=== PATIENT | female | born 1990 | race Caucasian/White ===

== ENCOUNTER 2023-11-25 20:04 | Outpatient (CLI) | payer OTHER ==
[~2023-11-25] VITALS: Ht 167.6 cm; Wt 119.7 kg
[~2023-11-25 20:04] MED LIST: ADULT LOW DOSE81 M1 PO; HYDRALAZINE HCL25 MG PO; LABETALOL HCL100 MG PO; NIFE60TA3 PO; NIFEDIPINE20 MG PO; OBSTETRIX ONE1 EAC1 PO
[2023-11-25] MEDS ORDERED: RINGERS SOLUTION,LACTATED 1,000 ML IV SCH (20:45)
[2023-11-25] MEDS ORDERED: LABETALOL HCL 100 MG TABLET PO SCH (21:00)
[2023-11-25 21:03] LABS: HEMATOCRIT 36.2 % (36.0-45.00); HEMOGLOBIN 12.1 g/dL (12.0-15.00); MEAN CELL VOLUME 80.6 fL (80.00-100.00); MEAN CORPUSCULAR HEMOGLOBIN 26.9 pg (27.00-32.0); MEAN CORPUSCULAR HGB CONC 33.3 g/dl (32.0-36.0); PLATELET COUNT 266 K/uL (150-450); RED BLOOD COUNT 4.49 M/uL (4.00-6.00); RED CELL DISTRIBUTION WIDTH 15.2 % (11.5-14.5); URINE APPEARANCE Cloudy; URINE BILIRRUBIN Negative (NEGATIVE); URINE BLOOD Negative; URINE COLOR Yellow; URINE GLUCOSE Negative (NEGATIVE); URINE LEUKOCYTE Negative; URINE NITRATE Negative
[2023-11-25 21:07] LABS: URINE BACTERIA 2043.5 uL (0.0-1933); URINE EPITHELIAL CELLS 73.5 uL (0.0-38.8); URINE RBC 35.5 uL (0.0-20.8); URINE WBC 34.4 uL (0.0-23.2)
[2023-11-25 21:20] LABS: INR 0.94; PARTIAL THROMBOPLASTIN TIME 27.8 SECONDS (22.0-34.0); PROTHROMBIN TIME 9.9 SECONDS (9.0-11.5)
[2023-11-25 21:21] LABS: ALBUMIN 2.9 gm/dL (3.4-5.0); BILIRUBIN TOTAL 0.23 mg/dL (0.3-1.2); CALCIUM 9.1 mg/dL (8.5-10.1); CREATININE SERUM 0.68 mg/dL (0.55-1.02); GFR 100.27; GLOBULINA 3.8 G/DL (2.4-3.5); POTASSIUM 3.98 mEq/L (3.5-5.1); TOTAL PROTEIN 6.7 gm/dL (6.4-8.2)
[2023-11-25 21:32] LABS: URINE CRYSTALS FEW /HPF; URINE PROTEIN 100 (NEGATIVE)
[2023-11-26] MEDS ORDERED: NIFEDIPINE 90 MG TAB.SA.OSM PO SCH (09:00)
== END 2023-11-26 18:36 | disposition home or self-care (01) ==
LOC: OBS/DEL 20:04
PROVIDERS: ATTEND Specialist
DX: O16.3 Unspecified maternal hypertension, third trimester (principal); Z3A.32 32 weeks gestation of pregnancy; O14.03 Mild to moderate pre-eclampsia, third trimester; O26.849 Uterine size-date discrepancy, unspecified trimester; O36.8199 Decreased fetal movements, unspecified trimester, other fetus; O10.019 Pre-existing essential hypertension complicating pregnancy, unspecified trimester; O44.00 Complete placenta previa NOS or without hemorrhage, unspecified trimester

== ENCOUNTER 2023-12-28 06:31 | Inpatient (IN) | payer OTHER ==
[~2023-12-28] VITALS: Ht 167.6 cm; Wt 2.3 kg
[2023-12-28] MEDS ORDERED: RINGERS SOLUTION,LACTATED 1,000 ML IV SCH (06:45)
[2023-12-28] MEDS ORDERED: CEFAZOLIN SODIUM 1,000 MG VIAL IV SCH (06:45)
[2023-12-28] MEDS ORDERED: PROCARDIA XL90 MG PO (08:05)
[2023-12-28] MEDS ORDERED: ERYTHROMYCIN BASE 1 GM TUBE OP ONE (08:06)
[2023-12-28] MEDS ORDERED: CHLORHEXIDINE GLUCONATE 120 ML BOTTLE TOP ONE ×2 (08:06→12:45)
[2023-12-28] MEDS ORDERED: OXYTOCIN 10 UNITS/ML VIAL ONE (08:06)
[2023-12-28] MEDS ORDERED: ERYTHROMYCIN BASE 1 GM TUBE OP NR (08:15)
[2023-12-28 08:19] LABS: HEMATOCRIT 37.8 % (36.0-45.00); HEMOGLOBIN 11.9 g/dL (12.0-15.00); MEAN CELL VOLUME 79.5 fL (80.00-100.00); MEAN CORPUSCULAR HEMOGLOBIN 25.1 pg (27.00-32.0); MEAN CORPUSCULAR HGB CONC 31.6 g/dl (32.0-36.0); PLATELET COUNT 224 K/uL (150-450); RED BLOOD COUNT 4.76 M/uL (4.00-6.00)
[2023-12-28 08:37] LABS: PH,URINE 5.5 (5.0-8.0); URINE APPEARANCE Clear; URINE BILIRRUBIN Negative (NEGATIVE); URINE BLOOD Negative; URINE COLOR Yellow; URINE GLUCOSE Negative (NEGATIVE); URINE KETONE Negative (NEGATIVE); URINE LEUKOCYTE Negative; URINE NITRATE Negative; URINE UROBILINOGEN 0.2 E.U./dl
[2023-12-28 08:41] LABS: URINE BACTERIA 647.5 uL (0.0-1933); URINE EPITHELIAL CELLS 27.2 uL (0.0-38.8); URINE RBC 8.7 uL (0.0-20.8); URINE WBC 15.3 uL (0.0-23.2)
[2023-12-28 08:46] LABS: URINE CAST 0.76 uL (0.0-1.40); URINE PROTEIN 300 (NEGATIVE)
[2023-12-28 08:59] LABS: INR < 0.93; PARTIAL THROMBOPLASTIN TIME 28.2 SECONDS (22.0-34.0); PROTHROMBIN TIME 10.1 SECONDS (9.0-11.5)
[2023-12-28] MEDS ORDERED: CEFAZOLIN SODIUM 1,000 MG VIAL IV NR (09:00)
[2023-12-28] MEDS ORDERED: NIFEDIPINE 90 MG TAB.SA.OSM PO SCH (09:03)
[2023-12-28 09:19] LABS: ALBUMIN 2.8 gm/dL (3.4-5.0); BILIRUBIN TOTAL 0.36 mg/dL (0.3-1.2); CALCIUM 8.9 mg/dL (8.5-10.1); CREATININE SERUM 0.62 mg/dL (0.55-1.02); GFR 111.55; GLOBULINA 3.8 G/DL (2.4-3.5); POTASSIUM 4.16 mEq/L (3.5-5.1); TOTAL PROTEIN 6.6 gm/dL (6.4-8.2)
[2023-12-28] MEDS ORDERED: OXYTOCIN 10 UNITS/ML VIAL IV ONE (12:45)
[2023-12-28] MEDS ORDERED: KETOROLAC TROMETHAMINE 60 MG VIAL IM NR (13:30)
[2023-12-28] MEDS ORDERED: MORPHINE SULFATE 4 MG/ML VIAL IV ONE ×2 (14:10→14:40)
[2023-12-28] MEDS ORDERED: MEPERIDINE HCL/PF 50 MG/ML VIAL IV SCH (16:00)
[2023-12-28] MEDS ORDERED: LABETALOL HCL 100 MG TABLET PO SCH (17:00)
[2023-12-28] MEDS ORDERED: PROMETHAZINE HCL 25 MG/ML AMPUL IV SCH (17:00)
[2023-12-28] MEDS ORDERED: OxyCODONE HCL/APAP UD (PERCOCET) PO SCH (17:00)
[2023-12-28] MEDS ORDERED: SIMETHICONE 125 MG CAPSULE PO SCH (17:00)
[2023-12-28 19:07] LABS: HEMATOCRIT 36.5 % (36.0-45.00); HEMOGLOBIN 11.9 g/dL (12.0-15.00); MEAN CELL VOLUME 79.3 fL (80.00-100.00); MEAN CORPUSCULAR HEMOGLOBIN 25.9 pg (27.00-32.0); MEAN CORPUSCULAR HGB CONC 32.6 g/dl (32.0-36.0); PLATELET COUNT 231 K/uL (150-450); RED BLOOD COUNT 4.61 M/uL (4.00-6.00); RED CELL DISTRIBUTION WIDTH 15.8 % (11.5-14.5)
[2023-12-28] MEDS ORDERED: KETOROLAC TROMETHAMINE 60 MG VIAL IM ONE (19:44)
[2023-12-29] MEDS ORDERED: ENOXAPARIN SODIUM 40 MG/0.4 ML SYRINGE SUBCUTANEO NR
[2023-12-29] MEDS ORDERED: DOCUSATE CALCIUM 240 MG CAPSULE PO SCH (09:00)
== END 2023-12-31 16:10 | disposition home or self-care (01) | DRG 786 ==
LOC: LDR 06:31 → OB/GYN 10:18
PROVIDERS: ADMIT Specialist; ATTEND Specialist
PROC: 4A1HXCZ Monitoring of Products of Conception, Cardiac Rate, External Approach (ICD-10-PCS; 2023-12-28)
PROC: 10D00Z1 Extraction of Products of Conception, Low, Open Approach (ICD-10-PCS; principal; 2023-12-28 08:00)
DX: O10.02 Pre-existing essential hypertension complicating childbirth (principal); O41.1230 Chorioamnionitis, third trimester, not applicable or unspecified; O41.1430 Placentitis, third trimester, not applicable or unspecified; O36.5930 Maternal care for other known or suspected poor fetal growth, third trimester, not applicable or unspecified; O99.214 Obesity complicating childbirth; E66.9 Obesity, unspecified; Z3A.37 37 weeks gestation of pregnancy; Z37.0 Single live birth; Z20.822 Contact with and (suspected) exposure to COVID-19